=== PATIENT | female | born 1945 | race Caucasian/White ===

== ENCOUNTER 2017-12-10 11:14 | Outpatient (CLI) | payer MEDICARE ==
[2017-12-10 12:15] LABS: #Eosinphils 0.1 thou/uL (0.0-0.7); #Lymphocytes 1.1 thou/uL (1.20-3.40); #Monocytes 0.3 thou/uL (0.11-0.59); %Basophils 1.1 % (0.0-1.0); %Eosinophils 1.6 % (0.0-10.0); %Lymphocytes 24.9 % (21.0-51.0); %Monocytes 6.9 % (0.0-10.0); %Neutrophils 65.5 % (42.0-75.0); Hemoglobin 14.7 g/dL (12.0-16.0); Mean Corpuscular HGB CONC 34.2 g/dL (32.0-36.0); Mean Corpuscular Hemoglobin 32.5 pg (27.0-31.0); Mean Platelet Volume 8.1 fL (7.4-10.4); Platelet Count 185 thou/uL (130-400); Red Blood Cell (RBC) Count 4.52 mill/uL (4.20-5.40); White Blood Cell (WBC) Count 4.5 thou/uL (4.8-10.8)
[2017-12-10 12:40] LABS: Anion Gap 10 mmol/L (10-20); BUN (Urea Nitrogen) 17 mg/dL (9.8-20.1); Calc. Creatinine Clearance 0 mL/min (70-130); Calcium 10.6 mg/dL (7.8-10.44); Carbon Dioxide 30 mmol/L (23-31); Chloride 104 mmol/L (98-107); Estimated GFR-MDRD 54; Glucose 106 mg/dL (80-115); Potassium 4.2 mmol/L (3.5-5.1); Sodium 140 mmol/L (136-145)
== END 2017-12-10 11:15 | disposition home or self-care (01) ==
LOC: LABBT 11:14
PROVIDERS: ATTEND Orthopaedic Surgery Hand Surgery
DX: Z01.812 Encounter for preprocedural laboratory examination (principal); C76.41 Malignant neoplasm of right upper limb
CPT/HCPCS: 80048; 85025

== ENCOUNTER 2017-12-12 12:45 | Outpatient (CLI) | payer MEDICARE ==
[~2017-12-12 12:45] MED LIST: Iopamidol 370 76% 100 ML VIAL ONE
--- NOTE | 2017-12-12 14:33 | CT ---
CT CHEST WITH CONTRAST: History: Pulmonary nodules. Comparison: None. FINDINGS: Dense calcified granuloma right upper lobe. There appears to be some linear scarring in the right upp er lobe near the apex. Multiple calcified right hilar lymph nodes. Punctate calcified granuloma in the right lung base. There is a peripheral nodule in the left upper lobe measuring 4 mm, likely a small pleural scar. Mild atelectasis left lung base. No pericardial effusion. Multiple calcified granulomas of the spleen and liver. Adrenal glands are un remarkable as well as the gallbladder. The visualized portions of the thyroid is unremarkable. IMPRESSION: Prior granulomatous disease. No suspicious pulmonary nodule. POS: [facility]
== END 2017-12-12 12:46 | disposition home or self-care (01) ==
LOC: SCSCT 12:45
PROVIDERS: ATTEND Orthopaedic Surgery Hand Surgery
DX: R91.1 Solitary pulmonary nodule (principal)
CPT/HCPCS: 71260

== ENCOUNTER → 2017-12-17 | Day surgery (SDC) | payer MEDICARE ==
[2017-12-10 11:44] VITALS: BMI 25.8
[~2017-12-17] MED LIST changes: +Bacitracin Zinc Ointment 30 gm TUBE ONE; +Bupivacaine PF 0.5% 30 ML VIAL ONE; +CEFAZOLIN/Water 2 GM/20 ML SYRINGE ONE; +Dexamethasone 20 MG/5 ML VIAL ONE; +Fentanyl 250 MCG/5 ML VIAL ONE; -Iopamidol 370 76% 100 ML VIAL ONE; +Ketorolac Tromethamine 30 MG/ML VIAL ONE; +Lidocaine 1% PF 5 ML VIAL ONE; +Ondansetron HCl/PF 4 MG/2 ML Vial ONE; +PROPOFOL 200 MG/20 ML VIAL ONE; +Sodium Chloride 0.9% 10 ML ONE; +Thrombin 5000 UNITS/5 ML VIAL ONE; +ePHEDrine/0.9% NaCl/PF SYRINGE 50 mg/10 ml ONE
--- NOTE | 2017-12-17 11:17 | OP ---
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 POSTOPERATIVE DIAGNOSIS: Squamous cell carcinoma noninvasive right first webspace dorsal hand. PROCEDURE PERFORMED: Excision, malignant neoplasia squamous cell, 4 cm primary tumor with 3 mm erich n circumferentially or a 6 cm x 5 cm area, two 6 x 5 cm split-thickness skin graft, right thigh to ri ght hand harvested 0.20 thickness with power dermatome. ESTIMATED BLOOD LOSS: 10 mL. TOURNIQUET TIME: 5 minutes intraoperative procedure, also 37 minute wait for pathological specimen d iagnosis to show that an area from [id number] was the margins had some invasion to the edge so we then used this information to take off another 2 mm of margin in that zone. SURGEON: Dr. Theodore Hernandez ANESTHESIA: General LMA technique augmented by 30 mL 0.5% Marcaine block 15 given at both the thigh donor site and the dorsal hand without epinephrine. DESCRIPTION OF PROCEDURE: After successful general LMA technique, the limb was prepped and draped. The patient then had timeout done. We prepped and draped the right thigh for donor site and the righ t upper extremity. The right extremity was padded to include use of a circumferential entire roll of 4 inch cast padding. We then exsanguinated the limb, inflated the tourniquet to 250 mmHg pressure. Outlined a 2.5 to 3 mm circumferentially margin around the mass, began with dissection of the entire dermis, epidermis, sub cutaneous fat, leaving a small layer of tenosynovium on the underlying extensor tendons and muscle. We then lifted out the whole mass and sent it to pathology. We waited 37 minutes for specimen. We d eflated the tourniquet, obtained hemostasis and while waiting we outlined the entire area for the ski n graft with all appropriate dressings. We received word from pathology 37 minutes after the specime n was removed, indicating that the margins from [id number] had a squamous cell tumor over a small area up to the edge of the margin, so we resected another 2 mm of margin in this area and then proceeded with the skin graft harvest. A[place]ill skin graft power Aubrie dermatome, 2 inch wide piece, 0.20 depth, then meshed this 1:1.5 and had plenty of graft to cover the area which we then placed on the recipient site with ami, bolste red it with bacitracin ointment under Adaptic under cotton balls that was stapled as well. A bulky d ressing was applied here, a soft tight. At the donor site we placed thrombin-soaked Gelfoam immediately after harvesting the graft, and once hemostasis was excellent, covered this with benzoin to the skin and Tegaderms. A 4 inch Juan wrap was applied. A 6-inch Juan wrap applied to the thigh and the patient left the operating room without evid ence of anesthetic or operative complication.
== END ==
LOC: SDC 05:50
PROVIDERS: ATTEND Orthopaedic Surgery Hand Surgery
PROC: 0HRFX74 Replacement of Right Hand Skin with Autologous Tissue Substitute, Partial Thickness, External Approach (ICD-10-PCS; principal; 2017-12-17)
DX: C44.622 Squamous cell carcinoma of skin of right upper limb, including shoulder (principal); I10 Essential (primary) hypertension; M81.0 Age-related osteoporosis without current pathological fracture; R91.1 Solitary pulmonary nodule; Z79.899 Other long term (current) drug therapy; Z98.890 Other specified postprocedural states; Z88.8 Allergy status to other drugs, medicaments and biological substances
CPT/HCPCS: 88305; 88331; 88332; 96374; A4216; J0131; J1885; J3010; J3490; S0020

== ENCOUNTER 2018-07-10 09:20 | Outpatient (CLI) | payer MEDICARE ==
--- NOTE | 2018-07-18 18:11 | MMO ---
Bilateral MAMMO Bilat Screen [facility]. CLINICAL HISTORY: Patient is 73 years old and is seen for screening. The patient has no family history of breast cancer. The patient has no personal history of cancer. VIEWS: The views performed were: bilateral craniocaudal and bilateral mediolateral oblique. FILMS COMPARED: The present examination has been compared to prior imaging studies performed at [facility] on 09/09/2012 and 03/17/2015. This study has been interpreted with the assistance of computer-aided detection. MAMMOGRAM FINDINGS: There are scattered fibroglandular densities. There are no suspicious masses, suspicious calcifications, or new areas of architectural distortion. IMPRESSION: THERE IS NO MAMMOGRAPHIC EVIDENCE OF MALIGNANCY. A ROUTINE FOLLOW-UP MAMMOGRAM IN 1 YEAR IS RECOMMENDED. ACR BI-RADS Category 1 - Negative MAMMOGRAPHY NOTE: 1. A negative mammogram report should not delay a biopsy if a dominant of clinically suspicious mass is present. 2. Approximately 10% to 15% of breast cancers are not detected by mammography. 3. Adenosis and dense breasts may obscure an underlying neoplasm.
== END 2018-07-10 09:21 | disposition home or self-care (01) ==
LOC: SCSMAMMO 09:20
PROVIDERS: ATTEND Family Medicine
DX: Z12.31 Encounter for screening mammogram for malignant neoplasm of breast (principal)
CPT/HCPCS: 77067